=== PATIENT | female | born 1995 | race Caucasian/White ===

== ENCOUNTER 2018-02-21 14:00 | Emergency (ER) | payer OTHER, MEDICAID, SELFPAY ==
[2018-02-21] VITALS (7 sets, daily range): BP systolic 102–127; BP diastolic 47–79; PULSE 91–104; RESP 16–19; TEMP 36.3; O2SAT 99–100; BMI 41.4
--- NOTE | 2018-02-21 16:25 | PC.NURSE ---
concern for food poisoining, onset of vomiting this morning at 3-4am, vomited x10 denies blood, with chills, diarrhea 5-6 times denies blood,. onset of headache this morning 7am. denies visual changes, reports sensitive to lights.
[2018-02-21] MEDS: ONDANSETRON 4 MG/2 ML INJ IV (16:26)
[2018-02-21] MEDS: SODIUM CHLORIDE 0.9% 1,000 ML 1000 ML IV (16:26)
--- NOTE | 2018-02-21 16:30 | ED.NAVMDI ---
HPI - Nausea/Vomiting/Diarrhea <CHRIS Luz - Last Filed: 02/21/18 21:03> General Chief complaint: Nausea/Vomiting/Diarrhea Stated complaint: vomitting,cold,sweats,15 weeks Time Seen by Provider: 02/21/18 16:08 Source: patient Mode of arrival: ambulatory Limitations: no limitations History of Present Illness HPI Narrative: 22-year-old healthy female that is a nonsmoker here for complaint of having nausea vomiting and diarrhea over the past couple of days. She reports that her has had similar symptoms. She denies any fevers although she does states she has had chills. She does state that she has had some abdominal cramping. She denies any vaginal discharge or bleeding. She is 4 para 3. She is approximately 15 weeks . She denies any other current concerns or complaints at this timeframe. Related Data Previous Rx's Medication Instructions Recorded ondansetron 4 mg PO TID PRN #12 tab 02/21/18 Allergies Allergy/AdvReac Type Severity Reaction Status Date / Time No Known Drug Allergies Allergy Verified 02/21/18 14:09 Review of Systems <CHRIS Luz - Last Filed: 02/21/18 21:03> Constitutional Denies chills, Denies fever(s), Denies lethargy and Denies weakness Eyes Denies change in vision, Denies eye discharge, Denies irritation and Denies loss of vision ENT Ears, Nose, Mouth, and Throat: Denies change in voice, Denies neck pain and Denies sore throat Cardiovascular Denies chest pain, Denies irregular heart rhythm, Denies lightheadedness, Denies palpitations, Denies dyspnea, Denies dyspnea on exertion and Denies orthopnea Respiratory Denies cough, Denies dyspnea, Denies dyspnea on exertion and Denies wheezing Gastrointestinal Comments: Nausea vomiting diarrhea Genitourinary Denies hematuria, Denies flank pain, Denies urinary incontinence and Denies urinary urgency Musculoskeletal Denies neck pain Integumentary/Breasts Denies pruritus, Denies erythema, Denies rash and Denies wounds Neurologic Denies confusion, Denies loss of vision and Denies weakness Psychiatric Denies anxiety, Denies confusion, Denies depression, Denies homicidal ideation and Denies suicidal ideation Endocrine Denies palpitations Allergic/Immunologic Denies wheezing Exam <CHRIS Luz - Last Filed: 02/21/18 21:03> Initial Vital Signs Initial Vital Signs: Vital Signs Temperature 97.3 F L 02/21/18 14:10 Pulse Rate 100 H 02/21/18 14:10 Respiratory Rate 16 02/21/18 14:10 Blood Pressure 127/70 02/21/18 14:10 Pulse Oximetry 100 02/21/18 14:10 Const General: cooperative and well developed Nutritional Appearance: well nourished Orientation: alert, awake, oriented x3 and not confused HENVA Mouth: oral mucosae normal and moist mucous membranes Eyes Conjunctivae: conjunctivae normal Sclera: sclerae normal Pupils: PERRL EOM: EOM intact bilaterally Resp Effort & Inspection: normal respiratory effort, able to speak in complete sentences, no respiratory distress and no use of accessory muscles Auscultation: clear to auscultation bilaterally, no rales, no rhonchi and no wheezes Cardio Rate: regular rate Rhythm: regular rhythm Heart Sounds: no click, no gallops, no murmurs and no rubs Pulses: normal peripheral pulses GI Inspection: non-distended Palpation: soft, no hepatosplenomegaly, No guarding, No pulsatile mass and tender (Mild generalized tenderness) Auscultation: normal bowel sounds General: No CVA tenderness Skin General: no rashes or lesions noted, No jaundice and No petechiae Neuro General: alert, oriented x3, gait normal and no focal motor deficits Speech: speech normal <Av Burk DO - Last Filed: 02/21/18 21:54> Initial Vital Signs Initial Vital Signs: Vital Signs Temperature 97.3 F L 02/21/18 14:10 Pulse Rate 100 H 02/21/18 14:10 Respiratory Rate 16 02/21/18 14:10 Blood Pressure 127/70 02/21/18 14:10 Pulse Oximetry 100 02/21/18 14:10 Course <CHRIS Luz - Last Filed: 02/21/18 21:03> Orders Ordered: ED Orders 02/21/18 16:30 Complete Blood Count AUTO DIFF Stat Comprehensive Metabolic Panel Stat Influenza A and B by PCR Rapid Stat 02/21/18 17:02 US OB limited Stat 02/21/18 18:59 Urinalysis and Microscopic Stat Urine Culture Stat Discontinued Medications Acetaminophen (Tylenol) 650 mg PO NOW ONE Stop: 02/21/18 16:55 Last Admin: 02/21/18 16:56 Dose: 650 mg Sodium Chloride (Normal Saline 0.9%) 1,000 mls @ 1,000 mls/hr IV BOLUS ONE Stop: 02/21/18 15:44 Last Infusion: 02/21/18 17:37 Dose: 0 mls/hr Admin: 02/21/18 16:26 Dose: 1,000 mls/hr Ondansetron HCl (Zofran) 4 mg IV NOW ONE Stop: 02/21/18 14:46 Last Admin: 02/21/18 16:26 Dose: 4 mg Vital Signs - 8 hr 02/21/18 14:10 02/21/18 16:12 02/21/18 16:30 Temperature 97.3 F L Pulse Rate 100 H 104 H 91 H Respiratory Rate 16 19 16 Blood Pressure 127/70 Blood Pressure [Right Arm] 115/61 112/63 Pulse Oximetry 100 100 99 02/21/18 17:00 02/21/18 17:30 02/21/18 18:00 Temperature Pulse Rate 91 H 101 H 99 H Respiratory Rate 16 16 Blood Pressure Blood Pressure [Right Arm] 118/53 L 114/79 102/47 L Pulse Oximetry 99 100 99 02/21/18 20:34 Temperature Pulse Rate 98 H Respiratory Rate Blood Pressure 123/59 L Blood Pressure [Right Arm] Pulse Oximetry 99 <Av Burk, - Last Filed: 02/21/18 21:54> Orders Ordered: ED Orders 02/21/18 16:30 Complete Blood Count AUTO DIFF Stat Comprehensive Metabolic Panel Stat Influenza A and B by PCR Rapid Stat 02/21/18 17:02 US OB limited Stat 02/21/18 18:59 Urinalysis and Microscopic Stat Urine Culture Stat Discontinued Medications Acetaminophen (Tylenol) 650 mg PO NOW ONE Stop: 02/21/18 16:55 Last Admin: 02/21/18 16:56 Dose: 650 mg Sodium Chloride (Normal Saline 0.9%) 1,000 mls @ 1,000 mls/hr IV BOLUS ONE Stop: 02/21/18 15:44 Last Infusion: 02/21/18 17:37 Dose: 0 mls/hr Admin: 02/21/18 16:26 Dose: 1,000 mls/hr Ondansetron HCl (Zofran) 4 mg IV NOW ONE Stop: 02/21/18 14:46 Last Admin: 02/21/18 16:26 Dose: 4 mg Vital Signs - 8 hr 02/21/18 14:10 02/21/18 16:12 02/21/18 16:30 Temperature 97.3 F L Pulse Rate 100 H 104 H 91 H Respiratory Rate 16 19 16 Blood Pressure 127/70 Blood Pressure [Right Arm] 115/61 112/63 Pulse Oximetry 100 100 99 02/21/18 17:00 02/21/18 17:30 02/21/18 18:00 Temperature Pulse Rate 91 H 101 H 99 H Respiratory Rate 16 16 Blood Pressure Blood Pressure [Right Arm] 118/53 L 114/79 102/47 L Pulse Oximetry 99 100 99 02/21/18 20:34 Temperature Pulse Rate 98 H Respiratory Rate Blood Pressure 123/59 L Blood Pressure [Right Arm] Pulse Oximetry 99 MDM - Nausea/Vomiting/Diarrhea <CHRIS Luz - Last Filed: 02/21/18 21:03> Lab Data Result diagrams: 02/21/18 16:30 02/21/18 16:30 Lab Results 02/21/18 02/21/18 02/21/18 Range/Units 16:30 16:30 16:30 WBC 9.0 (4.5-11.0) X10^3/uL RBC 4.59 (4.0-5.2) X10^6/uL Hgb 12.5 (12.0-16.0) g/dL Hct 37.4 (36-46) % MCV 81.5 (80-100) fL MCH 27.3 (26-34) PG MCHC 33.5 (30-36) % RDW 15.5 H (11.6-14.8) % Plt Count 185 (150-400) X10^3/uL Neut % (Auto) 90.8 H (50-75) % Lymph % (Auto) 5.3 L (25-40) % [place] % (Auto) 3.7 (3-14) % Eos % (Auto) 0.1 L (2-4) % Baso % (Auto) 0.1 (0-2) % Neut # (Auto) 8200 H (5700-9429) /uL Sodium 137 (137-145) mmol/L Potassium 3.8 (3.4-5.1) mmol/L Chloride 104 (98-107) mmol/L Carbon Dioxide 23 (22-32) mmol/L BUN 7 (7-17) mg/dL Creatinine 0.50 L (0.52-1.04) mg/dL Estimated GFR > 60.0 (>60) mL/min BUN/Creatinine Ratio 14.0 (6-22) Glucose 89 (70-100) mg/dL Calcium 9.1 (8.4-10.2) mg/dL Total Bilirubin 0.5 (0.2-1.3) mg/dL AST 29 (14-36) IU/L ALT 26 (9-52) IU/L Alkaline Phosphatase 55 (38-126) U/L Total Protein 7.4 (6.3-8.2) g/dL Albumin 4.0 (3.5-5.0) g/dL Globulin 3.4 (1.7-4.1) g/dL Albumin/Globulin Ratio 1.2 (1.0-2.8) Urine Color Urine Appearance Urine pH (4.5-8.0) Ur Specific [place] (1.000-1.035) Urine Protein (Negative) Urine Glucose (UA) (Normal) g/dL Urine Ketones (NEGATIVE) Urine Occult Blood (Negative) Urine Nitrate (Negative) Urine Bilirubin (NEGATIVE) Urine Urobilinogen (0.2) E.U./dL Ur Leukocyte Esterase (NEGATIVE) Urine RBC (0-5/HPF) Urine WBC (0-5/HPF) Ur Squamous Epith Cells Urine Bacteria (None) Urine Mucus (Negative) Ur Culture Indicated? Micro UA Comment Influenza A & B (PCR) Negative (Negative) 02/21/18 Range/Units 18:59 WBC (4.5-11.0) X10^3/uL RBC (4.0-5.2) X10^6/uL Hgb (12.0-16.0) g/dL Hct (36-46) % MCV (80-100) fL MCH (26-34) PG MCHC (30-36) % RDW (11.6-14.8) % Plt Count (150-400) X10^3/uL Neut % (Auto) (50-75) % Lymph % (Auto) (25-40) % [place] % (Auto) (3-14) % Eos % (Auto) (2-4) % Baso % (Auto) (0-2) % Neut # (Auto) (2908-6466) /uL Sodium (137-145) mmol/L Potassium (3.4-5.1) mmol/L Chloride (98-107) mmol/L Carbon Dioxide (22-32) mmol/L BUN (7-17) mg/dL Creatinine (0.52-1.04) mg/dL Estimated GFR (>60) mL/min BUN/Creatinine Ratio (6-22) Glucose (70-100) mg/dL Calcium (8.4-10.2) mg/dL Total Bilirubin (0.2-1.3) mg/dL AST (14-36) IU/L ALT (9-52) IU/L Alkaline Phosphatase (38-126) U/L Total Protein (6.3-8.2) g/dL Albumin (3.5-5.0) g/dL Globulin (1.7-4.1) g/dL Albumin/Globulin Ratio (1.0-2.8) Urine Color Yellow Urine Appearance Sl cloudy Urine pH 6.0 (4.5-8.0) Ur Specific [place] 1.025 (1.000-1.035) Urine Protein Trace H (Negative) Urine Glucose (UA) Negative (Normal) g/dL Urine Ketones 3+ H (NEGATIVE) Urine Occult Blood Negative (Negative) Urine Nitrate Negative (Negative) Urine Bilirubin Negative (NEGATIVE) Urine Urobilinogen 0.2 (0.2) E.U./dL Ur Leukocyte Esterase Trace H (NEGATIVE) Urine RBC 1-5/hpf (0-5/HPF) Urine WBC 5-10/hpf H (0-5/HPF) Ur Squamous Epith Cells 1-5 /hpf Urine Bacteria Few (2-10) H (None) Urine Mucus 1+ H (Negative) Ur Culture Indicated? Specimen cultured Micro UA Comment Not Reportable Influenza A & B (PCR) (Negative) Urine Dip Bedside Urine Glucose Negative Bedside Urine Bilirubin - Negative Bedside Urine Ketone +++ 80 Urine Specific [place] 1.030 Bedside Urine Occult Blood - Negative Bedside Urine pH 6.0 Bedside Urine Protein +/- 15 Bedside Urine Urobilinogen - Negative Bedside Urine Nitrite - Negative Bedside Urine Leukocytes +/- 15 Esterase MDM Narrative Medical decision making narrative: CBC and Chem panel were obtained were unremarkable. Urinalysis showed white blood cells and also trace amount of leuko esterase. Patient denies having any urinary symptoms or dysuria. Will hold on antibiotics at this point. Ob ultrasound was obtained and shows intrauterine with heart rate at 168. With gestational age of 15. No complications. signs and symptoms present as a viral illness. She is prescribed Zofran to help with the nausea. Plenty of fluids. Follow up with OB in the next couple days for re-evaluation. For any worsening symptoms return to the emergency room. <Av Burk, DO - Last Filed: 02/21/18 21:54> Lab Data Lab Results 02/21/18 02/21/18 02/21/18 Range/Units 16:30 16:30 16:30 WBC 9.0 (4.5-11.0) X10^3/uL RBC 4.59 (4.0-5.2) X10^6/uL Hgb 12.5 (12.0-16.0) g/dL Hct 37.4 (36-46) % MCV 81.5 (80-100) fL MCH 27.3 (26-34) PG MCHC 33.5 (30-36) % RDW 15.5 H (11.6-14.8) % Plt Count 185 (150-400) X10^3/uL Neut % (Auto) 90.8 H (50-75) % Lymph % (Auto) 5.3 L (25-40) % [place] % (Auto) 3.7 (3-14) % Eos % (Auto) 0.1 L (2-4) % Baso % (Auto) 0.1 (0-2) % Neut # (Auto) 8200 H (7076-3135) /uL Sodium 137 (137-145) mmol/L Potassium 3.8 (3.4-5.1) mmol/L Chloride 104 (98-107) mmol/L Carbon Dioxide 23 (22-32) mmol/L BUN 7 (7-17) mg/dL Creatinine 0.50 L (0.52-1.04) mg/dL Estimated GFR > 60.0 (>60) mL/min BUN/Creatinine Ratio 14.0 (6-22) Glucose 89 (70-100) mg/dL Calcium 9.1 (8.4-10.2) mg/dL Total Bilirubin 0.5 (0.2-1.3) mg/dL AST 29 (14-36) IU/L ALT 26 (9-52) IU/L Alkaline Phosphatase 55 (38-126) U/L Total Protein 7.4 (6.3-8.2) g/dL Albumin 4.0 (3.5-5.0) g/dL Globulin 3.4 (1.7-4.1) g/dL Albumin/Globulin Ratio 1.2 (1.0-2.8) Urine Color Urine Appearance Urine pH (4.5-8.0) Ur Specific [place] (1.000-1.035) Urine Protein (Negative) Urine Glucose (UA) (Normal) g/dL Urine Ketones (NEGATIVE) Urine Occult Blood (Negative) Urine Nitrate (Negative) Urine Bilirubin (NEGATIVE) Urine Urobilinogen (0.2) E.U./dL Ur Leukocyte Esterase (NEGATIVE) Urine RBC (0-5/HPF) Urine WBC (0-5/HPF) Ur Squamous Epith Cells Urine Bacteria (None) Urine Mucus (Negative) Ur Culture Indicated? Micro UA Comment Influenza A & B (PCR) Negative (Negative) 02/21/18 Range/Units 18:59 WBC (4.5-11.0) X10^3/uL RBC (4.0-5.2) X10^6/uL Hgb (12.0-16.0) g/dL Hct (36-46) % MCV (80-100) fL MCH (26-34) PG MCHC (30-36) % RDW (11.6-14.8) % Plt Count (150-400) X10^3/uL Neut % (Auto) (50-75) % Lymph % (Auto) (25-40) % [place] % (Auto) (3-14) % Eos % (Auto) (2-4) % Baso % (Auto) (0-2) % Neut # (Auto) (8975-2880) /uL Sodium (137-145) mmol/L Potassium (3.4-5.1) mmol/L Chloride (98-107) mmol/L Carbon Dioxide (22-32) mmol/L BUN (7-17) mg/dL Creatinine (0.52-1.04) mg/dL Estimated GFR (>60) mL/min BUN/Creatinine Ratio (6-22) Glucose (70-100) mg/dL Calcium (8.4-10.2) mg/dL Total Bilirubin (0.2-1.3) mg/dL AST (14-36) IU/L ALT (9-52) IU/L Alkaline Phosphatase (38-126) U/L Total Protein (6.3-8.2) g/dL Albumin (3.5-5.0) g/dL Globulin (1.7-4.1) g/dL Albumin/Globulin Ratio (1.0-2.8) Urine Color Yellow Urine Appearance Sl cloudy Urine pH 6.0 (4.5-8.0) Ur Specific [place] 1.025 (1.000-1.035) Urine Protein Trace H (Negative) Urine Glucose (UA) Negative (Normal) g/dL Urine Ketones 3+ H (NEGATIVE) Urine Occult Blood Negative (Negative) Urine Nitrate Negative (Negative) Urine Bilirubin Negative (NEGATIVE) Urine Urobilinogen 0.2 (0.2) E.U./dL Ur Leukocyte Esterase Trace H (NEGATIVE) Urine RBC 1-5/hpf (0-5/HPF) Urine WBC 5-10/hpf H (0-5/HPF) Ur Squamous Epith Cells 1-5 /hpf Urine Bacteria Few (2-10) H (None) Urine Mucus 1+ H (Negative) Ur Culture Indicated? Specimen cultured Micro UA Comment Not Reportable Influenza A & B (PCR) (Negative) Urine Dip Bedside Urine Glucose Negative Bedside Urine Bilirubin - Negative Bedside Urine Ketone +++ 80 Urine Specific [place] 1.030 Bedside Urine Occult Blood - Negative Bedside Urine pH 6.0 Bedside Urine Protein +/- 15 Bedside Urine Urobilinogen - Negative Bedside Urine Nitrite - Negative Bedside Urine Leukocytes +/- 15 Esterase Discharge Plan Departure Patient Disposition: Home Clinical Impression: Nausea vomiting and diarrhea Discharge Date/Time: 02/21/18 20:20 Interventions: ED Discharge Assessment Last Done: 02/21/18 20:34 Instructions: DI for Viral Gastroenteritis -- Adult Activity Restrictions/Additional Instructions: Blood work today was unremarkable. Ultrasound shows 15 week healthy . Urinalysis shows possible urinary tract infection although you are not having any symptoms will hold on antibiotics at this point. Signs and symptoms presents as a viral illness. Follow up with OB in the next few days for re-evaluation. Plenty of fluids and rest. Use Zofran as prescribed for nausea. [id number] Tylenol as needed for any discomfort. For any worsening symptoms return to the emergency room. Prescriptions: New ondansetron 4 mg tablet,disintegrating 4 mg PO TID PRN (Reason: nausea and vomiting) Qty: 12 RF: 0 Referrals: [facility] [Provider Group] <Av Burk DO - Last Filed: 02/21/18 21:54> Cosign ED Attending Kathia Attestation: I was available for consultation during this patient's emergency department encounter
[2018-02-21 16:39] LABS: Add Manual Diff / Slide Review NO; Basophils Percent Auto 0.1 % (0-2); Eosinophils Percent Auto 0.1 % (2-4); Hematocrit 37.4 % (36-46); Hemoglobin 12.5 g/dL (12.0-16.0); Lymphocytes Percent Auto 5.3 % (25-40); Mean Corpuscular HGB Conc 33.5 % (30-36); Mean Corpuscular Hemoglobin 27.3 PG (26-34); Mean Corpuscular Volume 81.5 fL (80-100); Monocytes Percent Auto 3.7 % (3-14); Neutrophils Absolute Auto 8200 /uL (1500-7000); Neutrophils Percent Auto 90.8 % (50-75); Platelet Count 185 X10^3/uL (150-400); Red Blood Cell Count 4.59 X10^6/uL (4.0-5.2); Red Cell Distribution Width 15.5 % (11.6-14.8)
[2018-02-21] MEDS: ACETAMINOPHEN 325 MG TABLET 650 MG PO (16:56)
[2018-02-21 16:59] LABS: Alanine Aminotransferase 26 IU/L (9-52); Albumin Globulin Ratio 1.2 (1.0-2.8); Alkaline Phosphatase 55 U/L (38-126); Aspartate Aminotransferase 29 IU/L (14-36); Bilirubin Total 0.5 mg/dL (0.2-1.3); Blood Urea Nitrogen 7 mg/dL (7-17); Calcium 9.1 mg/dL (8.4-10.2); Carbon Dioxide 23 mmol/L (22-32); Chloride 104 mmol/L (98-107); Estimated Glomerular Filt Rate > 60.0 mL/min (>60); Globulin 3.4 g/dL (1.7-4.1); Glucose 89 mg/dL (70-100); HEMOLYSIS < 15 (0-50); Potassium 3.8 mmol/L (3.4-5.1); Sodium 137 mmol/L (137-145); Total Protein 7.4 g/dL (6.3-8.2)
--- NOTE | 2018-02-21 17:02 | DI.US.S_ITS ---
PROCEDURE: US OB LIMITED INDICATIONS: Nausea/vomiting OUTSIDE/PRIOR DATING DATA: Last menstrual period (LMP): 11/17/2017. LMP-based estimated date of delivery (GLADYS): 08/24/2018. First dating scan (date and location): [facility], 02/21/18. Estimated date of delivery (GLADYS) from first dating scan: 08/15/18. TECHNIQUE: Real-time scanning was performed of the fetus, with image documentation. COMPARISON: None. FINDINGS: Please note that detailed anatomic evaluation of the gestation was not performed on this exam. Limited evaluation of the maternal kidneys bilaterally demonstrates no dali hydronephrosis. A single living intrauterine gestation is present. Presentation: Transverse with head to the right. Placenta: Placental position is posterior, without evidence of previa. heart rate: 168 beats per minute. Estimated composite gestational age: 15 weeks 0 days. Biparietal diameter measured at 2.79 cm for an estimated gestational age of 15 weeks and 0 days. Head circumference measured at 10.3 cm for an estimated gestational age of 14 weeks 6 days. Abdominal circumference measured at 8.6 cm for an estimated gestational age of 14 weeks and 6 days. Femur length measured 1.7 cm for an estimated gestational age of 15 weeks and 0 days. IMPRESSION: Single living intrauterine with heart rate measured at 168 beats per minute and estimated composite gestational age of 15 weeks 0 days. Please note that detailed anatomic evaluation of the gestation was not performed of this exam; attention on followup exams recommended. Preliminary findings were discussed with the referring provider Dr. Johnnie Dickens by the gis manager at approximately 1520 hrs. on 02/21/18. Dictated by: Aditya Hardin M.D. on 02/21/2018 at 18:14 Approved by: Aditya Hadrin M.D. on 02/21/2018 at 18:20
[2018-02-21 17:40] LABS: Influenza A and B by PCR Rapid Negative (Negative)
[2018-02-21 19:05] LABS: Appearance Urine UA SL CLOUDY; Bilirubin Urine UA NEGATIVE (NEGATIVE); Color Urine UA YELLOW; Glucose Urine UA NEGATIVE (Normal); Ketones Urine UA 3+ (NEGATIVE); Leukocyte Esterase Urine UA TRACE (NEGATIVE); Nitrite Urine UA NEGATIVE (Negative); Occult Blood Urine UA NEGATIVE (Negative); Protein Urine UA TRACE (Negative); Specific Gravity Urine UA 1.025 (1.000-1.035); Urobilinogen Urine UA 0.2 E.U./dL (0.2)
[2018-02-21 19:13] LABS: Bacteria Urine Few (2-10); Mucus Urine 1+ (Negative); RBC Urine 1-5/HPF (0-5/HPF); Squamous Epithelial Cell Urine 1-5 /HPF; WBC Urine 5-10/HPF (0-5/HPF)
[2018-02-21 19:14] LABS: Culture Indicated Urine Specimen Cultured
--- NOTE | 2018-02-21 20:12 | ED_ITS ---
HPI - Nausea/Vomiting/Diarrhea <CHRIS Luz - Last Filed: 02/21/18 21:03> General Chief complaint: Nausea/Vomiting/Diarrhea Stated complaint: vomitting,cold,sweats,15 weeks Time Seen by Provider: 02/21/18 16:08 Source: patient Mode of arrival: ambulatory Limitations: no limitations History of Present Illness HPI Narrative: 22-year-old healthy female that is a nonsmoker here for complaint of having nausea vomiting and diarrhea over the past couple of days. She reports that her has had similar symptoms. She denies any fevers although she does states she has had chills. She does state that she has had some abdominal cramping. She denies any vaginal discharge or bleeding. She is 4 para 3. She is approximately 15 weeks . She denies any other current concerns or complaints at this timeframe. Related Data Previous Rx's Medication Instructions Recorded ondansetron 4 mg PO TID PRN #12 tab 02/21/18 Allergies Allergy/AdvReac Type Severity Reaction Status Date / Time No Known Drug Allergies Allergy Verified 02/21/18 14:09 Review of Systems <CHRIS Luz - Last Filed: 02/21/18 21:03> Constitutional Denies chills, Denies fever(s), Denies lethargy and Denies weakness Eyes Denies change in vision, Denies eye discharge, Denies irritation and Denies loss of vision ENT Ears, Nose, Mouth, and Throat: Denies change in voice, Denies neck pain and Denies sore throat Cardiovascular Denies chest pain, Denies irregular heart rhythm, Denies lightheadedness, Denies palpitations, Denies dyspnea, Denies dyspnea on exertion and Denies orthopnea Respiratory Denies cough, Denies dyspnea, Denies dyspnea on exertion and Denies wheezing Gastrointestinal Comments: Nausea vomiting diarrhea Genitourinary Denies hematuria, Denies flank pain, Denies urinary incontinence and Denies urinary urgency Musculoskeletal Denies neck pain Integumentary/Breasts Denies pruritus, Denies erythema, Denies rash and Denies wounds Neurologic Denies confusion, Denies loss of vision and Denies weakness Psychiatric Denies anxiety, Denies confusion, Denies depression, Denies homicidal ideation and Denies suicidal ideation Endocrine Denies palpitations Allergic/Immunologic Denies wheezing Exam <CHRIS Luz - Last Filed: 02/21/18 21:03> Initial Vital Signs Initial Vital Signs: Vital Signs Temperature 97.3 F L 02/21/18 14:10 Pulse Rate 100 H 02/21/18 14:10 Respiratory Rate 16 02/21/18 14:10 Blood Pressure 127/70 02/21/18 14:10 Pulse Oximetry 100 02/21/18 14:10 Const General: cooperative and well developed Nutritional Appearance: well nourished Orientation: alert, awake, oriented x3 and not confused HENPA Mouth: oral mucosae normal and moist mucous membranes Eyes Conjunctivae: conjunctivae normal Sclera: sclerae normal Pupils: PERRL EOM: EOM intact bilaterally Resp Effort & Inspection: normal respiratory effort, able to speak in complete sentences, no respiratory distress and no use of accessory muscles Auscultation: clear to auscultation bilaterally, no rales, no rhonchi and no wheezes Cardio Rate: regular rate Rhythm: regular rhythm Heart Sounds: no click, no gallops, no murmurs and no rubs Pulses: normal peripheral pulses GI Inspection: non-distended Palpation: soft, no hepatosplenomegaly, No guarding, No pulsatile mass and tender (Mild generalized tenderness) Auscultation: normal bowel sounds General: No CVA tenderness Skin General: no rashes or lesions noted, No jaundice and No petechiae Neuro General: alert, oriented x3, gait normal and no focal motor deficits Speech: speech normal <Av Burk DO - Last Filed: 02/21/18 21:54> Initial Vital Signs Initial Vital Signs: Vital Signs Temperature 97.3 F L 02/21/18 14:10 Pulse Rate 100 H 02/21/18 14:10 Respiratory Rate 16 02/21/18 14:10 Blood Pressure 127/70 02/21/18 14:10 Pulse Oximetry 100 02/21/18 14:10 Course <CHRIS Luz - Last Filed: 02/21/18 21:03> Orders Ordered: ED Orders 02/21/18 16:30 Complete Blood Count AUTO DIFF Stat Comprehensive Metabolic Panel Stat Influenza A and B by PCR Rapid Stat 02/21/18 17:02 US OB limited Stat 02/21/18 18:59 Urinalysis and Microscopic Stat Urine Culture Stat Discontinued Medications Acetaminophen (Tylenol) 650 mg PO NOW ONE Stop: 02/21/18 16:55 Last Admin: 02/21/18 16:56 Dose: 650 mg Sodium Chloride (Normal Saline 0.9%) 1,000 mls @ 1,000 mls/hr IV BOLUS ONE Stop: 02/21/18 15:44 Last Infusion: 02/21/18 17:37 Dose: 0 mls/hr Admin: 02/21/18 16:26 Dose: 1,000 mls/hr Ondansetron HCl (Zofran) 4 mg IV NOW ONE Stop: 02/21/18 14:46 Last Admin: 02/21/18 16:26 Dose: 4 mg Vital Signs - 8 hr 02/21/18 14:10 02/21/18 16:12 02/21/18 16:30 Temperature 97.3 F L Pulse Rate 100 H 104 H 91 H Respiratory Rate 16 19 16 Blood Pressure 127/70 Blood Pressure [Right Arm] 115/61 112/63 Pulse Oximetry 100 100 99 02/21/18 17:00 02/21/18 17:30 02/21/18 18:00 Temperature Pulse Rate 91 H 101 H 99 H Respiratory Rate 16 16 Blood Pressure Blood Pressure [Right Arm] 118/53 L 114/79 102/47 L Pulse Oximetry 99 100 99 02/21/18 20:34 Temperature Pulse Rate 98 H Respiratory Rate Blood Pressure 123/59 L Blood Pressure [Right Arm] Pulse Oximetry 99 <Av Burk, - Last Filed: 02/21/18 21:54> Orders Ordered: ED Orders 02/21/18 16:30 Complete Blood Count AUTO DIFF Stat Comprehensive Metabolic Panel Stat Influenza A and B by PCR Rapid Stat 02/21/18 17:02 US OB limited Stat 02/21/18 18:59 Urinalysis and Microscopic Stat Urine Culture Stat Discontinued Medications Acetaminophen (Tylenol) 650 mg PO NOW ONE Stop: 02/21/18 16:55 Last Admin: 02/21/18 16:56 Dose: 650 mg Sodium Chloride (Normal Saline 0.9%) 1,000 mls @ 1,000 mls/hr IV BOLUS ONE Stop: 02/21/18 15:44 Last Infusion: 02/21/18 17:37 Dose: 0 mls/hr Admin: 02/21/18 16:26 Dose: 1,000 mls/hr Ondansetron HCl (Zofran) 4 mg IV NOW ONE Stop: 02/21/18 14:46 Last Admin: 02/21/18 16:26 Dose: 4 mg Vital Signs - 8 hr 02/21/18 14:10 02/21/18 16:12 02/21/18 16:30 Temperature 97.3 F L Pulse Rate 100 H 104 H 91 H Respiratory Rate 16 19 16 Blood Pressure 127/70 Blood Pressure [Right Arm] 115/61 112/63 Pulse Oximetry 100 100 99 02/21/18 17:00 02/21/18 17:30 02/21/18 18:00 Temperature Pulse Rate 91 H 101 H 99 H Respiratory Rate 16 16 Blood Pressure Blood Pressure [Right Arm] 118/53 L 114/79 102/47 L Pulse Oximetry 99 100 99 02/21/18 20:34 Temperature Pulse Rate 98 H Respiratory Rate Blood Pressure 123/59 L Blood Pressure [Right Arm] Pulse Oximetry 99 MDM - Nausea/Vomiting/Diarrhea <CHRIS Luz - Last Filed: 02/21/18 21:03> Lab Data Result diagrams: 02/21/18 16:30 02/21/18 16:30 Lab Results 02/21/18 02/21/18 02/21/18 Range/Units 16:30 16:30 16:30 WBC 9.0 (4.5-11.0) X10^3/uL RBC 4.59 (4.0-5.2) X10^6/uL Hgb 12.5 (12.0-16.0) g/dL Hct 37.4 (36-46) % MCV 81.5 (80-100) fL MCH 27.3 (26-34) PG MCHC 33.5 (30-36) % RDW 15.5 H (11.6-14.8) % Plt Count 185 (150-400) X10^3/uL Neut % (Auto) 90.8 H (50-75) % Lymph % (Auto) 5.3 L (25-40) % [place] % (Auto) 3.7 (3-14) % Eos % (Auto) 0.1 L (2-4) % Baso % (Auto) 0.1 (0-2) % Neut # (Auto) 8200 H (3202-1958) /uL Sodium 137 (137-145) mmol/L Potassium 3.8 (3.4-5.1) mmol/L Chloride 104 (98-107) mmol/L Carbon Dioxide 23 (22-32) mmol/L BUN 7 (7-17) mg/dL Creatinine 0.50 L (0.52-1.04) mg/dL Estimated GFR > 60.0 (>60) mL/min BUN/Creatinine Ratio 14.0 (6-22) Glucose 89 (70-100) mg/dL Calcium 9.1 (8.4-10.2) mg/dL Total Bilirubin 0.5 (0.2-1.3) mg/dL AST 29 (14-36) IU/L ALT 26 (9-52) IU/L Alkaline Phosphatase 55 (38-126) U/L Total Protein 7.4 (6.3-8.2) g/dL Albumin 4.0 (3.5-5.0) g/dL Globulin 3.4 (1.7-4.1) g/dL Albumin/Globulin Ratio 1.2 (1.0-2.8) Urine Color Urine Appearance Urine pH (4.5-8.0) Ur Specific [place] (1.000-1.035) Urine Protein (Negative) Urine Glucose (UA) (Normal) g/dL Urine Ketones (NEGATIVE) Urine Occult Blood (Negative) Urine Nitrate (Negative) Urine Bilirubin (NEGATIVE) Urine Urobilinogen (0.2) E.U./dL Ur Leukocyte Esterase (NEGATIVE) Urine RBC (0-5/HPF) Urine WBC (0-5/HPF) Ur Squamous Epith Cells Urine Bacteria (None) Urine Mucus (Negative) Ur Culture Indicated? Micro UA Comment Influenza A & B (PCR) Negative (Negative) 02/21/18 Range/Units 18:59 WBC (4.5-11.0) X10^3/uL RBC (4.0-5.2) X10^6/uL Hgb (12.0-16.0) g/dL Hct (36-46) % MCV (80-100) fL MCH (26-34) PG MCHC (30-36) % RDW (11.6-14.8) % Plt Count (150-400) X10^3/uL Neut % (Auto) (50-75) % Lymph % (Auto) (25-40) % [place] % (Auto) (3-14) % Eos % (Auto) (2-4) % Baso % (Auto) (0-2) % Neut # (Auto) (1348-5110) /uL Sodium (137-145) mmol/L Potassium (3.4-5.1) mmol/L Chloride (98-107) mmol/L Carbon Dioxide (22-32) mmol/L BUN (7-17) mg/dL Creatinine (0.52-1.04) mg/dL Estimated GFR (>60) mL/min BUN/Creatinine Ratio (6-22) Glucose (70-100) mg/dL Calcium (8.4-10.2) mg/dL Total Bilirubin (0.2-1.3) mg/dL AST (14-36) IU/L ALT (9-52) IU/L Alkaline Phosphatase (38-126) U/L Total Protein (6.3-8.2) g/dL Albumin (3.5-5.0) g/dL Globulin (1.7-4.1) g/dL Albumin/Globulin Ratio (1.0-2.8) Urine Color Yellow Urine Appearance Sl cloudy Urine pH 6.0 (4.5-8.0) Ur Specific [place] 1.025 (1.000-1.035) Urine Protein Trace H (Negative) Urine Glucose (UA) Negative (Normal) g/dL Urine Ketones 3+ H (NEGATIVE) Urine Occult Blood Negative (Negative) Urine Nitrate Negative (Negative) Urine Bilirubin Negative (NEGATIVE) Urine Urobilinogen 0.2 (0.2) E.U./dL Ur Leukocyte Esterase Trace H (NEGATIVE) Urine RBC 1-5/hpf (0-5/HPF) Urine WBC 5-10/hpf H (0-5/HPF) Ur Squamous Epith Cells 1-5 /hpf Urine Bacteria Few (2-10) H (None) Urine Mucus 1+ H (Negative) Ur Culture Indicated? Specimen cultured Micro UA Comment Not Reportable Influenza A & B (PCR) (Negative) Urine Dip Bedside Urine Glucose Negative Bedside Urine Bilirubin - Negative Bedside Urine Ketone +++ 80 Urine Specific [place] 1.030 Bedside Urine Occult Blood - Negative Bedside Urine pH 6.0 Bedside Urine Protein +/- 15 Bedside Urine Urobilinogen - Negative Bedside Urine Nitrite - Negative Bedside Urine Leukocytes +/- 15 Esterase MDM Narrative Medical decision making narrative: CBC and Chem panel were obtained were unremarkable. Urinalysis showed white blood cells and also trace amount of leuko esterase. Patient denies having any urinary symptoms or dysuria. Will hold on antibiotics at this point. Ob ultrasound was obtained and shows intrauterine with heart rate at 168. With gestational age of 14. No complications. signs and symptoms present as a viral illness. She is prescribed Zofran to help with the nausea. Plenty of fluids. Follow up with OB in the next couple days for re-evaluation. For any worsening symptoms return to the emergency room. <Av Burk, DO - Last Filed: 02/21/18 21:54> Lab Data Lab Results 02/21/18 02/21/18 02/21/18 Range/Units 16:30 16:30 16:30 WBC 9.0 (4.5-11.0) X10^3/uL RBC 4.59 (4.0-5.2) X10^6/uL Hgb 12.5 (12.0-16.0) g/dL Hct 37.4 (36-46) % MCV 81.5 (80-100) fL MCH 27.3 (26-34) PG MCHC 33.5 (30-36) % RDW 15.5 H (11.6-14.8) % Plt Count 185 (150-400) X10^3/uL Neut % (Auto) 90.8 H (50-75) % Lymph % (Auto) 5.3 L (25-40) % [place] % (Auto) 3.7 (3-14) % Eos % (Auto) 0.1 L (2-4) % Baso % (Auto) 0.1 (0-2) % Neut # (Auto) 8200 H (9064-4293) /uL Sodium 137 (137-145) mmol/L Potassium 3.8 (3.4-5.1) mmol/L Chloride 104 (98-107) mmol/L Carbon Dioxide 23 (22-32) mmol/L BUN 7 (7-17) mg/dL Creatinine 0.50 L (0.52-1.04) mg/dL Estimated GFR > 60.0 (>60) mL/min BUN/Creatinine Ratio 14.0 (6-22) Glucose 89 (70-100) mg/dL Calcium 9.1 (8.4-10.2) mg/dL Total Bilirubin 0.5 (0.2-1.3) mg/dL AST 29 (14-36) IU/L ALT 26 (9-52) IU/L Alkaline Phosphatase 55 (38-126) U/L Total Protein 7.4 (6.3-8.2) g/dL Albumin 4.0 (3.5-5.0) g/dL Globulin 3.4 (1.7-4.1) g/dL Albumin/Globulin Ratio 1.2 (1.0-2.8) Urine Color Urine Appearance Urine pH (4.5-8.0) Ur Specific [place] (1.000-1.035) Urine Protein (Negative) Urine Glucose (UA) (Normal) g/dL Urine Ketones (NEGATIVE) Urine Occult Blood (Negative) Urine Nitrate (Negative) Urine Bilirubin (NEGATIVE) Urine Urobilinogen (0.2) E.U./dL Ur Leukocyte Esterase (NEGATIVE) Urine RBC (0-5/HPF) Urine WBC (0-5/HPF) Ur Squamous Epith Cells Urine Bacteria (None) Urine Mucus (Negative) Ur Culture Indicated? Micro UA Comment Influenza A & B (PCR) Negative (Negative) 02/21/18 Range/Units 18:59 WBC (4.5-11.0) X10^3/uL RBC (4.0-5.2) X10^6/uL Hgb (12.0-16.0) g/dL Hct (36-46) % MCV (80-100) fL MCH (26-34) PG MCHC (30-36) % RDW (11.6-14.8) % Plt Count (150-400) X10^3/uL Neut % (Auto) (50-75) % Lymph % (Auto) (25-40) % [place] % (Auto) (3-14) % Eos % (Auto) (2-4) % Baso % (Auto) (0-2) % Neut # (Auto) (7085-7563) /uL Sodium (137-145) mmol/L Potassium (3.4-5.1) mmol/L Chloride (98-107) mmol/L Carbon Dioxide (22-32) mmol/L BUN (7-17) mg/dL Creatinine (0.52-1.04) mg/dL Estimated GFR (>60) mL/min BUN/Creatinine Ratio (6-22) Glucose (70-100) mg/dL Calcium (8.4-10.2) mg/dL Total Bilirubin (0.2-1.3) mg/dL AST (14-36) IU/L ALT (9-52) IU/L Alkaline Phosphatase (38-126) U/L Total Protein (6.3-8.2) g/dL Albumin (3.5-5.0) g/dL Globulin (1.7-4.1) g/dL Albumin/Globulin Ratio (1.0-2.8) Urine Color Yellow Urine Appearance Sl cloudy Urine pH 6.0 (4.5-8.0) Ur Specific [place] 1.025 (1.000-1.035) Urine Protein Trace H (Negative) Urine Glucose (UA) Negative (Normal) g/dL Urine Ketones 3+ H (NEGATIVE) Urine Occult Blood Negative (Negative) Urine Nitrate Negative (Negative) Urine Bilirubin Negative (NEGATIVE) Urine Urobilinogen 0.2 (0.2) E.U./dL Ur Leukocyte Esterase Trace H (NEGATIVE) Urine RBC 1-5/hpf (0-5/HPF) Urine WBC 5-10/hpf H (0-5/HPF) Ur Squamous Epith Cells 1-5 /hpf Urine Bacteria Few (2-10) H (None) Urine Mucus 1+ H (Negative) Ur Culture Indicated? Specimen cultured Micro UA Comment Not Reportable Influenza A & B (PCR) (Negative) Urine Dip Bedside Urine Glucose Negative Bedside Urine Bilirubin - Negative Bedside Urine Ketone +++ 80 Urine Specific [place] 1.030 Bedside Urine Occult Blood - Negative Bedside Urine pH 6.0 Bedside Urine Protein +/- 15 Bedside Urine Urobilinogen - Negative Bedside Urine Nitrite - Negative Bedside Urine Leukocytes +/- 15 Esterase Discharge Plan Departure Patient Disposition: Home Clinical Impression: Nausea vomiting and diarrhea Discharge Date/Time: 02/21/18 20:20 Interventions: ED Discharge Assessment Last Done: 02/21/18 20:34 Instructions: DI for Viral Gastroenteritis -- Adult Activity Restrictions/Additional Instructions: Blood work today was unremarkable. Ultrasound shows 15 week healthy . Urinalysis shows possible urinary tract infection although you are not having any symptoms will hold on antibiotics at this point. Signs and symptoms presents as a viral illness. Follow up with OB in the next few days for re- evaluation. Plenty of fluids and rest. Use Zofran as prescribed for nausea. [id number] Tylenol as needed for any discomfort. For any worsening symptoms return to the emergency room. Prescriptions: New ondansetron 4 mg tablet,disintegrating 4 mg PO TID PRN (Reason: nausea and vomiting) Qty: 12 RF: 0 Referrals: [facility] [Provider Group] <Av Burk DO - Last Filed: 02/21/18 21:54> Cosign ED Attending Kathia Attestation: I was available for consultation during this patient's emergency department encounter
== END 2018-02-21 20:20 | disposition home or self-care (01) ==
PROVIDERS: Emergency Medicine; Emergency Provider Nurse Practitioner Family
DX: R11.2 Nausea with vomiting, unspecified (principal); R19.7 Diarrhea, unspecified
CPT/HCPCS: 76815; 80053; 81001; 81003; 85025; 87086; 87400; 96361; 96374; 99283; 99284; J2405